=== PATIENT | male | born 1945 | race Caucasian/White ===

== ENCOUNTER 2018-07-01 06:20 | Inpatient (IN) ==
--- NOTE | 2018-06-12 19:18 | ANES ---
Anesthesia Pre Procedure Eval HOME MEDICATIONS Atorvastatin Calcium [Lipitor] 10 mg PO DAILY 05/08/16 [Last Taken 05/16/16] Ferrous Sulfate 325 mg PO DAILY 05/17/16 [Last Taken 05/16/16] amLODIPine BESYLATE [Norvasc] 5 mg PO DAILY 05/17/16 [Last Taken 05/17/16 05:30] aspirin 81 mg tablet,delayed release 81 mg PO DAILY 12/04/17 [Last Taken Unkno wn] famotidine 40 mg tablet 40 mg PO DAILY 12/04/17 [Last Taken Unknown] tramadol 50 mg tablet See Rx Instructions PO .COMPLEX PRN #60 tab 03/14/18 [Last Taken Unknown] warfarin 2 mg tablet 6 mg PO DAILY tab 04/18/18 [Last Taken Unknown] Omeprazole 20 mg PO DAILY 06/12/18 [Last Taken Unknown] Allergies/Adverse Reactions: Allergies Allergy/AdvReac Type Severity Reaction Status Date / Time No Known Allergies Allergy Verified 06/12/18 09:09 - Planned Procedure Planned Procedure: L total knee Medication List Reviewed:: Yes Allergies Verified: Yes Medical History (Last Reviewed 06/12/18 @ 19:17 by Afshin Carrillo CRNA) NAWAF on CPAP Atrial fibrillation Onset Date: ~01/2018 Sleep apnea Onset Date: ~01/2018 Degenerative joint disease of right hip Onset Date: ~2015 Hyperlipidemia Knee pain bilateral Rhinitis, allergic Surgical History (Last Reviewed 06/12/18 @ 19:17 by Afshin Carrillo CRNA) H/O colonoscopy H/O arthroscopic knee surgery cortisone shots for both knees LTx2; RTx1 History of tonsillectomy History of total right hip replacement Hx of CABG Onset Date: ~1997 [id number]? Family History (Last Reviewed 06/12/18 @ 19:17 by Afshin Carrillo CRNA) Brother Alive and well Father , age 65 Cancer Mother , age 89 Alzheimers disease Dementia Brother Alive and well Brother Alive and well Brother Alive and well Brother Alive and well - Family Anesthesia History Family History:: no untoward family reactions to anesthesia - Airway/Neck/Teeth Within Normal Limits:: Yes Denture Type: None Neck Exam: full range of motion Mallampatti Score: 2 Thyromental (T-M) distance: > 6 cm Mandibulo Hyoid distance: > 3 cm - Respiratory Respiratory History: CPAP/BiPAP home use Smoking Status: Former smoker Sleep Apnea currently treated: Yes Sleep Apnea by current assessment: Yes - Cardiovascular Cardiac History: PR, arrhythmia, hypertension Tolerate Activity: Fair - Anesthesia Assessment and Plan ASA Class: PS, III Anesthesia Type Plan: Spinal - adductor canal block for postop analgesia Planned difficult intubation/equipment available: No
[~2018-07-01 06:20] MED LIST: ROPIVACAINE HCL/PF 100 MG, EPINEPHrine 0.2 MG, KETOROLAC TROMETHAMINE 30 MG in NORMAL S... IJ PRN; TRANEXAMIC ACID 1,000 MG in NORMAL SALINE 100 ML IV PRN; ceFAZolin SODIUM 1 GM VIAL IV PRN
--- NOTE | 2018-07-01 07:40 | ANES ---
Anesthesia Pre Procedure Eval Vitals/Labs: Last Vital Signs Temp 36.1 C 07/01/18 06:30 Pulse 90 07/01/18 06:30 Resp 16 07/01/18 06:30 BP 124/85 07/01/18 06:30 Pulse Ox 96 07/01/18 06:30 HOME MEDICATIONS Atorvastatin Calcium [Lipitor] 10 mg PO DAILY 05/08/16 [Last Taken 06/30/18] Ferrous Sulfate 325 mg PO DAILY 05/17/16 [Last Taken 06/30/18] amLODIPine BESYLATE [Norvasc] 5 mg PO DAILY 05/17/16 [Last Taken 07/01/18] aspirin 81 mg tablet,delayed release 81 mg PO DAILY 12/04/17 [Last Taken 06/30/18] famotidine 40 mg tablet 40 mg PO DAILY 12/04/17 [Last Taken 06/30/18] tramadol 50 mg tablet See Rx Instructions PO .COMPLEX PRN #60 tab 03/14/18 [Last Taken 06/30/18] warfarin 2 mg tablet 6 mg PO DAILY tab 04/18/18 [Last Taken 06/26/18] Omeprazole 20 mg PO DAILY 06/12/18 [Last Taken 06/30/18] Allergies/Adverse Reactions: Allergies Allergy/AdvReac Type Severity Reaction Status Date / Time No Known Allergies Allergy Verified 07/01/18 06:35 - Planned Procedure Planned Procedure: L total knee Medication List Reviewed:: Yes Allergies Verified: Yes Medical History (Last Reviewed 07/01/18 @ 07:38 by Chang Douglass CRNA) Hypertension Atrial fibrillation Onset Date: ~01/2018 NAWAF on CPAP Sleep apnea Onset Date: ~01/2018 Degenerative joint disease of right hip Onset Date: ~2015 Hyperlipidemia Knee pain bilateral Rhinitis, allergic Surgical History (Last Reviewed 07/01/18 @ 07:38 by Chang Douglass CRNA) H/O colonoscopy H/O arthroscopic knee surgery cortisone shots for both knees LTx2; RTx1 History of tonsillectomy History of total right hip replacement Hx of CABG Onset Date: ~1997 [id number]? Family History (Last Reviewed 07/01/18 @ 07:38 by Chang Douglass CRNA) Brother Alive and well Father , age 65 Cancer Mother , age 89 Alzheimers disease Dementia Brother Alive and well Brother Alive and well Brother Alive and well Brother Alive and well - Family Anesthesia History Family History:: no untoward family reactions to anesthesia, no familial bleeding tendencies, no family history of clotting disorders, no family history of premature - Airway/Neck/Teeth Within Normal Limits:: Yes Teeth Condition: intact Neck Exam: full range of motion Mallampatti Score: 2 Thyromental (T-M) distance: > 6 cm Mandibulo Hyoid distance: > 3 cm - Respiratory Respiratory History: sleep apnea, CPAP/BiPAP home use Respiratory Physical: lungs clear Smoking Status: Former smoker Sleep Apnea currently treated: Yes Sleep Apnea by current assessment: Yes - Cardiovascular Cardiac History: CAD, hypertension, hyperlipidemia Tolerate Activity: Fair Heart Sounds: S1 & S2, Regular - Anesthesia Assessment and Plan ASA Class: PS, III Anesthesia Type Plan: Block - adductor canal block, Spinal - Pending INR Planned difficult intubation/equipment available: No
[2018-07-01 07:45] LABS: INR 1.14 INR (0.90-1.10); Prothrombin Time (Patient) 11.4 Seconds (9.0-11.0)
[2018-07-01] MEDS: MORPHINE SULFATE 15 MG TABLET.SA PO SCH ×3 (07:50→20:54)
[2018-07-01] MEDS: RINGER'S SOLUTION,LACTATED 1,000 ML IV PRN ×2 (08:25→09:51)
[2018-07-01] MEDS ORDERED: RINGER'S SOLUTION,LACTATED 1,000 ML IV PRN (09:18)
[2018-07-01] MEDS ORDERED: MORPHINE SULFATE 2 MG/ML DISP.SYRIN IV PRN (10:20)
[2018-07-01] MEDS ORDERED: ACETAMINOPHEN 500 MG TABLET PO PRN (10:20)
[2018-07-01] MEDS ORDERED: diphenhydrAMINE HCL 50 MG/ML VIAL IV PRN (10:20)
[2018-07-01] MEDS ORDERED: DEXTROSE 5%-LACTATED RINGERS 1,000 ML IV PRN (10:20)
[2018-07-01] MEDS ORDERED: ZOLPIDEM TARTRATE 5 MG TABLET PO PRN (10:20)
[2018-07-01] MEDS ORDERED: MAGNESIUM HYDROXIDE 30 ML UDC PO PRN (10:20)
--- NOTE | 2018-07-01 10:26 | OR ---
Operative Report - Dictated Report Narrative: Date: 07/01/2018 Preoperative diagnosis: Left Knee degenerative joint disease. 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 Procedure: Left Total knee arthroplasty. Surgeon: Cliff Swartz M.D. Seamer: Yahir Rome PA-C (provided and essential set of skilled, educated hands that assisted with transfer, positioning, prepping, draping, manipulation, retraction, placement of jigs, injection, insertion of implants, irrigation, closure wounds, and dressings all of which could not be performed by the available surgical crew) Anesthesia: Spinal with regional block and local periarticular joint injection. Complications: None Specimens: Bone for disposal. Estimated blood loss: Minimal. Tourniquet time: 105 Minutes at 325 millimeters of mercury. Retained implants: Depuy Attune size 9 left lugged cemented posterior stabilized femoral component. Size 8 fixed-bearing cemented tibial platform. 9 by 5 millimeter posterior stabilized cross-linked tibial insert. 41 millimeter medialized patella button. Indications: Mr. Hodges is a 73-year-old gentleman who has had long-standing left knee pain and arthrosis. This patient was followed in my clinic for period of time with significant complaints of left knee pain consistent with arthritic ch anges. He had failed conservative measures including, but not limited to, activity modification, passage of time, medications, and other conservative measures. Patient wished to proceed with surgical treatment. The risks, benefits, and alternatives were discussed in clinic. The risks of , blood clots, bleeding, infection, nerve/tendon blood vessel/ injury, malposition of components, intraoperative fracture, postoperative limited range of motion, persistent pain, failure of components, and need for additional procedures. Patient wished to proceed consent was obtained after answering all questions. Procedure: After marking the correct extremity on the floor, the patient was taken to the operating room. A timeout was performed. IV antibiotics consisting of Ancef were administered prior to the procedure. A regional followed by spinal anesthetic was induced by anesthesia, per my request, on the operative table with all bony prominences well-padded. Marsh catheter was placed, and a bump was placed under the operative side buttock. SCDs and KOMAL hose were utilized on the nonoperative leg. A well-padded tourniquet was applied to the operative thigh. The operative leg was then pre-scrubbed with alcohol, prepped, and draped in a standard sterile fashion. After exsanguinating the extremity with an Esmarch bandage, the tourniquet was inflated. After marking out the anterior knee for standard incision centered over the patella, the skin was incised and dissected down to the joint retinaculum. The joint retinaculum was marked out as well as the horizontal axis of the patella, and a standard medial parapatellar arthrotomy was then made. The most proximal aspect of the quadriceps tendon and the patella tendon insertion were protected from release. A partial synovectomy was performed as well as a resection of the infrapatellar fat pad. The distal femoral fat pad proximal to the trochlea was also resected using cautery. The soft tissues were elevated off the medial aspect of the proximal tibia using a Stallings elevator ensuring that we did not transect the medial collateral ligament. Upon initial evaluation range of motion was approximately 0 degrees to 110 degrees of flexion. There were signs of advanced arthrosis in the medial, lateral, and patellofemoral joint spaces. There were large marginal osteophytes which were removed with a rongeur. The knee was hyperflexed and the patella was tucked laterally. Protecting the surrounding soft tissues with Homans, an entry drill was placed down the femoral canal using Whitesides line for guidance into the entry point. The intramedullary femoral alignment lily was utilized in order to cut the distal femur in 5 degrees of valgus resecting 10 millimeters of bone. Next the distal femur was sized to a size 9. A posterior referencing guide was utilized to place the distal femoral cutting block in 3 degrees of external rotation. This was pinned into place. The rotation was confirmed both visually and based on anatomic landmarks. The 4 in 1 cutting jig of the appropriate size was utilized in order to make all bony cuts. The angle wing was used to ensure no notching. Retractors were utilized in order to protect surrounding soft tissues. This cut did not result in any excessive notching. We then cut the box centered over the distal femur. This allowed for resection of the anterior and posterior cruciate ligaments. I then turned my attention to the preparation of the tibia. Using an extra medullary tibial alignment lily, 2 millimeters of bone was resected off the medial articular surface. This was made perpendicular to the mechanical axis of the joint with the alignment lily centered over the ankle mortise. The alignment lily was checked and was noted to be parallel to the mechanical axis, centered over the medial one third of the tibial tubercle, paralleling the anterior surface of the tibia. We then turned our attention to the remaining meniscus and soft tissues. These were removed while protecting the surrounding ligaments and soft tissues. The marginal osteophytes off the anterior, posterior, medial, lateral aspects of the femur and tibia were removed. The tibia was sized out to a size 8. Next the tibia was drilled and punched in an externally rotated position. Next the trial femur and a series of tibial inserts were utilized in order to allow for full extension and maximal flexion. It was found that a 5 millimeter insert gave the best range of motion and stability at multiple flexion points as well as at full extension there was less than 2 mm of gapping both medially and laterally. There is minimal anterior translation with the knee at 90 degrees of flexion and no signs of being able to dislocate the knee. The patella was then prepared. The initial thickness was 26 millimeters. This was reamed down to 15 millimeters parallel to the anterior surface of the patella. It was sized out to a size 41 medialized patella button. This was then drilled and trialed. Without any medial restraint the patella tracked appropriately and did not sublux or dislocate. At this point, it was felt these were the appropriate sized implants, and all trials were removed. The standard periarticular joint injection consisting of ropivacaine, Toradol, and epinephrine were injected into the periarticular joint tissues. The bony surfaces were thoroughly irrigated with a pulsatile-suction saline irrigation device. A bone plug from the prior resected anterior chamfer cut was placed into the drill hole at the distal femur. The bony surfaces were then dried in preparation for placement of the implants. The cement was vacuum mixed per the veterinary practitioner's instructions. The cement was placed on the dry bony surfaces and posterior aspect of the implants. The implants were impacted into place, removing all extruded cement. At this point anesthesia administered tranexamic acid per protocol intravenously. The knee was placed in extension with axial loading with the trial insert while the cement cured. Once the cement cured, all remaining extruded cement was removed. The knee was placed through a range of motion with the trial insert to ensure appropriate range of motion and stability. Final range of motion was approximately 0 to 120 degrees. The knee was again thoroughly irrigated with pulsatile saline lavage. The final polyethylene insert was then impacted into place ensuring no retained soft tissues. The remaining periarticular joint injection was injected. A medium Hemovac drain was placed exiting superior laterally. The knee was then placed over a triangle and the arthrotomy was closed with interrupted #1 Vicryl after thoroughly irrigating the joint. The deep and subcutaneous tissues were closed with interrupted 0 and 3-0 Vicryl respectively. Skin was closed with a running subcutaneous 3-0 Monocryl and Prineo Dermabond dressing. 4 x 4's, Sof-Rol, and a full leg Ollie wrap were applied. All sponge, needle, blade, and instrument counts were correct prior to closing the wounds. Postoperative condition: The patient was awoken and transferred to the postanesthesia care unit in stable condition. Plan is to be admitted to the inpatient medical/surgical floor postoperatively for 24 hours of IV antibiotics, physical therapy, occupational therapy, and medical comanagement. Patient will be weightbearing as tolerated with range of motion as tolerated. DVT prophylaxis will be with SCDs, KOMAL hose, and pharmacological anticoagulation. Anticipated hospital stay is approximately 1-3 days.
--- NOTE | 2018-07-01 10:39 | ANES ---
Anesthesia Procedure Note Procedure Note: ANESTHESIA PROCEDURE NOTE Date of Procedure: 07/01/2018 Time of procedure: 8:05 AM. Performed by: Chang Douglass CRNA, MSN Licensed Architect: Alexandrea López RN. Preprocedure diagnosis: Post left total knee arthroplasty. Post procedure diagnosis: Same. Procedure: Left Adductor Canal Block. Indications: Post left total knee arthroplasty pain relief. Findings: See below. Details of the procedure: The patient was brought to OR #4 and placed in supine position. The patient's left femoral area to the knee was prepped with chlorhexidine and using ultrasound guidance the left femoral artery wasidentified at approximately the proximal one third femur. Under ultrasound guidance the saphenous nerve was approached with visualization of a 4 inch shielded block needle approaching the adductor canal just under the sartorius muscle. Once saphenous nerve was identified with proximity to the needle tip, the saphenous nerve was surrounded with 20 mL bupivacaine 0.25% with 1-200,000 epinephrine. Please see radiology/ultrasound report for details and retained images of the procedure. EBL: 0 Fluids: N/A. Specimen: N/A. Post procedure condition: The patient tolerated the procedure well. No complications were noted. Thank you for this consultation. Chang Douglass CRNA, MSN
--- NOTE | 2018-07-01 10:39 | ANES ---
Post Anesthesia Discharge - Transfer of Care Transfer of Care handoff given to nurse: Yes - Discharge from PACU Discharge from PACU when meets criteria: Yes - Awake and comfortable.
[2018-07-01] MEDS: KETOROLAC TROMETHAMINE 15 MG/ML VIAL IV SCH ×2 (11:45→18:06)
[2018-07-01] MEDS: ceFAZolin SODIUM 1 GM in DEXTROSE 5 % IN WATER 100 ML IV SCH ×4 (11:50→18:07)
--- NOTE | 2018-07-01 12:38 | ANES ---
Post Anesthesia Assessment - Vital Signs Vitals: Last Vital Signs Temp 35.9 C L 07/01/18 12:05 Pulse 74 07/01/18 12:05 Resp 18 07/01/18 12:05 BP 134/81 07/01/18 12:05 Pulse Ox 95 07/01/18 12:05 Airway Patency: Normal - Mental Status Level Of Consciousness: Awake, Alert - Pain Level Pain Score: 0 - N/V Assessment Nausea/Vomiting Presence: None Dehydration:: No
[2018-07-01] MEDS: oxyCODONE HCL/ACETAMINOPHEN 1 TAB TABLET PO PRN ×2 (15:51→20:52)
[2018-07-01] MEDS ORDERED: WARFARIN SODIUM 5 MG TABLET PO SCH (17:00)
[2018-07-01] MEDS ORDERED: WARFARIN SODIUM 6 MG TABLET PO SCH (17:00)
[2018-07-01] MEDS ORDERED: SENNOSIDES/DOCUSATE SODIUM 1 TAB TABLET PO SCH (21:00)
[2018-07-01] MEDS: MAG HYDROX/ALUMINUM HYD/SIMETH 30 ML UDC PO PRN (22:39)
[2018-07-02] MEDS: KETOROLAC TROMETHAMINE 15 MG/ML VIAL IV SCH ×3 (00:24→11:00)
[2018-07-02] MEDS: ceFAZolin SODIUM 1 GM in DEXTROSE 5 % IN WATER 100 ML IV SCH ×2 (00:25)
[2018-07-02] MEDS: ONDANSETRON HCL/PF 2 MG/ML VIAL IV PRN ×2 (04:21→08:27)
[2018-07-02 05:25] LABS: Hematocrit 33.7 % (42.0-52.0); Hemoglobin 11.2 gm/dL (13.5-18.0); Mean Cell Volume 93.4 fl (78-100); Mean Corpuscular Hgb Conc 33.2 g/dl (32-36); Mean Platelet Volume 10.6 fl (8-11.3); Platelet Count 136 K/mm3 (150-450); Red Blood Count 3.61 M/mm3 (4.7-6.0); Red Cell Distribution Width 13.2 % (11.5-14.0); White Blood Count 6.3 K/mm3 (4.0-10.5)
[2018-07-02 05:38] LABS: Anion Gap 12.4 mmol/L (6.8-13.8); Calcium * 8.3 mg/dL (7.9-10.9); Carbon Dioxide 28.3 mmol/L (24-32.6); Estimated Creat Clear 66.1; Potassium 3.7 mmol/L (3.4-4.6)
[2018-07-02 05:50] LABS: INR 1.1 INR (0.90-1.10)
[2018-07-02] MEDS ORDERED: PANTOPRAZOLE SODIUM 20 MG TABLET.DR PO SCH (07:00)
[2018-07-02] MEDS ORDERED: HYDROcodone/ACETAMINOPHEN 1 EACH TABLET PO PRN (08:12)
[2018-07-02] MEDS ORDERED: FAMOTIDINE 20 MG TABLET PO SCH ×2 (09:00→21:00)
[2018-07-02] MEDS ORDERED: ROSUVASTATIN CALCIUM 10 MG TABLET PO SCH (09:00)
[2018-07-02] MEDS ORDERED: FERROUS SULFATE 325 MG TABLET PO SCH (09:00)
[2018-07-02] MEDS ORDERED: amLODIPine BESYLATE 5 MG TABLET PO SCH (09:00)
[2018-07-02] MEDS ORDERED: ENOXAPARIN SODIUM 40 MG/0.4 ML SYRG SC SCH (09:21)
[2018-07-02] MEDS: MORPHINE SULFATE 15 MG TABLET.SA PO SCH (10:26)
[2018-07-02] MEDS: MAG HYDROX/ALUMINUM HYD/SIMETH 30 ML UDC PO PRN (10:38)
[2018-07-02] MEDS: CALCIUM CARBONATE 500 MG TAB.CHEW PO PRN ×2 (14:04→17:36)
[2018-07-02 16:15] VITALS: BP 131/75
--- NOTE | 2018-07-02 16:24 | DS ---
(1) History of left knee replacement Problem: Acute (2) CAD (coronary artery disease) Problem: Chronic (3) HTN (hypertension) Problem: Chronic (4) BPH (benign prostatic hyperplasia) Problem: Chronic (5) Acute blood loss anemia Problem: Acute (6) Status post left knee replacement Problem: Acute Description of Stay: Mr. Hodges was admitted to the floor after undergoing left total knee arthroplasty. Tolerated this well. Was admitted to the floor postoperatively for 24 hours of IV antibiotics, pain control, medical comanagement, and occupational and physical therapy. OT and PT were consulted to assist with activities of daily living and ambulation. Was made weightbearing as tolerated with range of motion as tolerated. Pain was initially controlled with IV regimen. This was transitioned to oral once tolerating a by mouth intake. Patient did have some problems with indigestion and was switched from Percocet to Squires. Was resumed on home diet and medications. Had a Marsh catheter inserted and the operating room which was discontinued on postoperative day 1. A drain was placed intraoperatively into the knee which was discontinued on postoperative day 1. Lovenox SCD and KOMAL hose were utilized for DVT prophylaxis. Vital signs remained stable to the hospital course. Serial labs were obtained which showed a final hemoglobin of 11.2 grams. BMP was reviewed and was stable. Physical examination throughout the hospital course showed an extremity that had sensation that was intact to light touch, palpable pulses, a benign wound, motor intact to the toes, ankle, and knee. Knee range of motion was approximately 5 next 70 degrees to [] degrees. Once an oral pain regimen was tolerated and physical therapy goals were met, it was felt that they were stable for discharge to home. Instructions: Continue with weightbearing as tolerated and range of motion as tolerated. It is OK to shower on the wound if it is not draining. If you note any drainage or for comfort you can cover with dry gauze and tape. Change every 2-3 days as needed. Continue with physical therapy. Resume home diet. Report any fever over 101.5 Fahrenheit, uncontrolled pain, increased drainage, foul odor of drainage, new or increased calf pain or shortness of breath, or any other significant complaints. Discharged with 3 days of Lovenox to give subcutaneous daily. He will E PT/INR July 05. Resume his 81 mg daily aspirin one soft Lovenox Continue with KOMAL hose on the operative extremity until instructed otherwise. No driving until instructed otherwise. Follow up in approximately 10-14 days. Procedures Performed: see notes below List Procedures: Left total knee arthroplasty Results and Findings: Lab Pending Results 07/01/18 07:26: PT 11.4 H, INR (Anticoag Therapy) 1.14 H 07/02/18 05:00: WBC 6.3, RBC 3.61 L, Hgb 11.2 L, Hct 33.7 L, MCV 93.4, MCH 31.0, MCHC 33.2, RDW 13.2, Plt Count 136 L, MPV 10.6 07/02/18 05:00: PT 11.0, INR (Anticoag Therapy) 1.10 07/02/18 05:00: Sodium 142, Plasma Sodium 143 H, Potassium 3.7, Chloride 105, Carbon Dioxide 28.3, Anion Gap 12.4, BUN 17, Creatinine 1.06, Est GFR (Non-Af Amer) 72, BUN/Creatinine Ratio 16.0, Random Glucose 148 H, Calcium 8.3 Discharge Location: Home Disposition: Home self-care Condition: Good Discharge Activity: Activity as tolerated, Weight bearing, Other - with walker Discharge Diet: Low salt, Low fat/chol Additional Patient Instructions (free text): Physical Therapy outpatient at [facility] rehab on Jul.03 at 11:00am. Please fax demographics and PT order to [facility] at fax # [phone]. Follow up Orthopedic Dr Swartz appointment on Sunday at 9:45am. Prescriptions (Any new or edited meds): Enoxaparin Sodium [Lovenox] 40 mg SC Q24H #30 disp.syrin HYDROcodone/ACETAMINOPHEN [Squires 5-325] 2 ea PO Q4H PRN #60 tab PRN Reason: Pain Morphine Sulfate [Ms Contin] 15 mg PO Q12H #20 tablet.sa Sennosides/Docusate Sodium [Senokot-S] 2 tab PO HS #30 tablet Complete Home Medications List: Complete Home Medication List: Atorvastatin Calcium [Lipitor] 10 mg PO DAILY 05/08/16 Ferrous Sulfate 325 mg PO DAILY 05/17/16 amLODIPine BESYLATE [Norvasc] 5 mg PO DAILY 05/17/16 aspirin 81 mg tablet,delayed release 81 mg PO DAILY 12/04/17 famotidine 40 mg tablet 40 mg PO DAILY 12/04/17 warfarin 2 mg tablet 6 mg PO DAILY tab 04/18/18 Omeprazole 20 mg PO DAILY 06/12/18 Calcium Carbonate [Tums] 500 mg PO QID PRN tab.chew 07/02/18 Enoxaparin Sodium [Lovenox] 40 mg SC Q24H #30 disp.syrin 07/02/18 HYDROcodone/ACETAMINOPHEN [Squires 5-325] 2 ea PO Q4H PRN #60 tab 07/02/18 Morphine Sulfate [Ms Contin] 15 mg PO Q12H #20 tablet.sa 07/02/18 Sennosides/Docusate Sodium [Senokot-S] 2 tab PO HS #30 tablet 07/02/18 Amb Orders for Discharge: Prothrombin Time Time Frame: 07/05/18, Location: Laboratory PT Evaluation and Treatment* Facility: [facility], Location: Rehabilitation Services
== END 2018-07-02 18:10 | disposition home or self-care (01) | DRG 470 ==
LOC: SUR 06:20 → MS 08:07
PROVIDERS: ADMIT Orthopaedic Surgery; ATTEND Orthopaedic Surgery
DX: Z68.36 Body mass index [BMI] 36.0-36.9, adult; I25.10 Atherosclerotic heart disease of native coronary artery without angina pectoris; N40.0 Benign prostatic hyperplasia without lower urinary tract symptoms; I25.2 Old myocardial infarction; K22.70 Barrett's esophagus without dysplasia; Z95.1 Presence of aortocoronary bypass graft; M25.762 Osteophyte, left knee; E66.9 Obesity, unspecified; K21.9 Gastro-esophageal reflux disease without esophagitis; I48.91 Unspecified atrial fibrillation; Z79.82 Long term (current) use of aspirin; G47.33 Obstructive sleep apnea (adult) (pediatric); I10 Essential (primary) hypertension; D62 Acute posthemorrhagic anemia; Z87.891 Personal history of nicotine dependence; M54.5 Low back pain; J44.9 Chronic obstructive pulmonary disease, unspecified; E78.5 Hyperlipidemia, unspecified; M17.12 Unilateral primary osteoarthritis, left knee; Z96.641 Presence of right artificial hip joint; Z79.01 Long term (current) use of anticoagulants
CPT/HCPCS: 36415; 73560; 80048; 85027; 85610; 97110; 97116; 97161; J2405